=== PATIENT | female | born 1955 | race Caucasian/White ===

== ENCOUNTER → 2020-11-05 | Outpatient (CLI) | payer MEDICARE, OTHER ==
[~2020-11-05] MED LIST: LEVO150T61 PO; METF500T17 PO; METO50TA82 PO
[2020-11-05 16:24] LABS: ALANINE AMINOTRANSFERASE 30 U/L (12-78); ALBUMIN 3.5 g/dL (3.4-5.0); ANION GAP 7 mmol/L (5-15); CALCIUM 9.6 mg/dL (8.5-10.1); CHLORIDE 112 mmol/L (98-107); CREATININE 0.92 mg/dL (0.55-1.02)
[2020-11-05 16:27] LABS: ALKALINE PHOSPHATASE 60 U/L (45-117); BILIRUBIN,TOTAL 1.8 mg/dL (0.2-1.0); TOTAL PROTEIN 6.8 g/dL (6.4-8.2)
== END | disposition home or self-care (01) ==
LOC: STAR 14:04
PROVIDERS: ATTEND Surgery
DX: Z01.812 Encounter for preprocedural laboratory examination (principal); Z20.822 Contact with and (suspected) exposure to COVID-19; I44.4 Left anterior fascicular block
CPT/HCPCS: 80053; 87635; 93005

== ENCOUNTER 2020-11-10 08:54 | Day surgery (SDC) | payer MEDICARE, OTHER ==
[~2020-11-10] VITALS: Ht 170.2 cm; Wt 87.0 kg
[2020-11-10 09:21] VITALS: BP 138/97
[2020-11-10] MEDS ORDERED: CHLORHEXIDINE 15 ML UDC ONE (09:27)
[2020-11-10] MEDS ORDERED: CHLORHEXIDINE 15 ML UDC MM ONE (09:30)
[2020-11-10] MEDS ORDERED: LACTATED RINGERS 1,000 ML IV SCH (09:30)
[2020-11-10] MEDS ORDERED: MIDAZOLAM 1 MG/ML, 2ML ONE (09:56)
[2020-11-10] MEDS ORDERED: PROPOFOL 50 ML ONE (09:56)
[2020-11-10] MEDS ORDERED: FENTANYL PF 250 MCG/5ML ONE (09:57)
[2020-11-10] MEDS ORDERED: EPINEPHRINE 1 MG/ML, 1ML ONE (10:05)
[2020-11-10] MEDS ORDERED: BUPIVACAINE/PF 0.5% ONE (10:05)
[2020-11-10] MEDS ORDERED: CEFAZOLIN 1,000 MG ONE (11:00)
[2020-11-10] MEDS ORDERED: KETOROLAC 30 MG/1 ML ONE (11:00)
[2020-11-10] MEDS ORDERED: ROCURONIUM 10 MG/ML,10ML ONE (11:00)
[2020-11-10] MEDS ORDERED: DEXAMETHASONE 4 MG/ML, 1ML ONE (11:00)
[2020-11-10] MEDS ORDERED: SUCCINYLCHOLINE 20 MG/ML, 10ML ONE (11:00)
[2020-11-10] MEDS ORDERED: ONDANSETRON 2MG/ML, 2ML ONE (11:00)
[2020-11-10] MEDS ORDERED: BUPIVACAINE/PF-EPI 0.5% 1:200K INFIL ONE (11:11)
[2020-11-10] MEDS ORDERED: DIAZEPAM 5 MG/ML, 2ML IVPush PRN (11:30)
[2020-11-10] MEDS ORDERED: EPHEDRINE 50 MG/ML, 1ML IM PRN (11:30)
[2020-11-10] MEDS ORDERED: OXYcodone 5 MG/5 ML ORAL.SOL UDC PO PRN (11:30)
[2020-11-10] MEDS ORDERED: DIPHENHYDRAMINE 50 MG/ML, 1ML IVPush PRN (11:30)
[2020-11-10] MEDS ORDERED: ONDANSETRON 2MG/ML, 2ML IVPush PRN (11:30)
[2020-11-10] MEDS ORDERED: ACETAMINOPHEN 325 MG TABLET PO PRN (11:30)
[2020-11-10] MEDS ORDERED: MEPERIDINE/PF 25MG/0.5ML IVPush PRN (11:30)
[2020-11-10] MEDS ORDERED: morphine SULFATE 10 MG/ML, 1ML IVPush PRN (11:30)
[2020-11-10] MEDS ORDERED: PROMETHAZINE 25 MG/ML, 1ML IVPush PRN (11:30)
[2020-11-10] MEDS ORDERED: EPHEDRINE 50 MG/ML, 1ML IVPush PRN (11:30)
[2020-11-10] MEDS ORDERED: FENTANYL PF 100 MCG/2ML IV PRN (11:30)
[2020-11-10] MEDS ORDERED: HYDR-1067 PO (13:08)
[2020-11-10] MEDS ORDERED: ONDA4TAB7 PO (13:09)
[2020-11-10] MEDS ORDERED: DOCU-131 PO (13:09)
== END 2020-11-10 15:35 | disposition home or self-care (01) ==
LOC: OUT 08:54
PROVIDERS: ATTEND Surgery
DX: K43.2 Incisional hernia without obstruction or gangrene (principal); E11.9 Type 2 diabetes mellitus without complications; I10 Essential (primary) hypertension; K21.9 Gastro-esophageal reflux disease without esophagitis; E03.9 Hypothyroidism, unspecified; F17.210 Nicotine dependence, cigarettes, uncomplicated; Z79.84 Long term (current) use of oral hypoglycemic drugs; Z79.890 Hormone replacement therapy; Z79.899 Other long term (current) drug therapy; Z90.49 Acquired absence of other specified parts of digestive tract; Z82.3 Family history of stroke; Z82.49 Family history of ischemic heart disease and other diseases of the circulatory system
CPT/HCPCS: 49560; 82962; J0171; J0330; J0690; J1100; J1885; J2250; J2405; J2704; J3010; J7120